=== PATIENT | female | born 1995 | race Caucasian/White ===

== ENCOUNTER 2018-08-19 00:51 | Emergency (ER) | payer BC, OTHER, SELFPAY ==
--- NOTE | 2018-08-19 08:29 | RAD ---
LEFT FOOT 3 VIEWS: Date: 08/19/18 HISTORY: Left foot pain. FINDINGS: Tarsals appear intact. The metatarsals and phalanges appear intact. IMPRESSION: No acute osseous abnormality. POS: [facility]
== END 2018-08-19 02:20 | disposition home or self-care (01) ==
LOC: ERS 00:51
DX: S92.812A Other fracture of left foot, initial encounter for closed fracture (principal); F41.9 Anxiety disorder, unspecified; X58.XXXA Exposure to other specified factors, initial encounter